=== PATIENT | male | born 1960 | race Caucasian/White ===

== ENCOUNTER 2020-10-23 05:06 | Day surgery (SDC) | payer OTHER ==
[2020-10-19 11:26] LABS: COVID AG,FIA SOURCE NASOPHARYNGEAL
[~2020-10-23] VITALS: Ht 170.2 cm; Wt 68.6 kg
[~2020-10-23 05:06] MED LIST: RINGERS SOLUTION,LACTATED 500 ML IV ONE
[2020-10-23] MEDS ORDERED: POVIDONE-IODINE 10% 15 ML SOLUTION UD TP ONE (05:07)
[2020-10-23] MEDS ORDERED: HYALURONATE SODIUM 12 MG/ML 0.8 ML SYRINGE IO ONE (05:07)
[2020-10-23] MEDS ORDERED: NEOMYCIN/POLYMYXIN B/DEXAMETH 3.5 GM OPHTHALMIC OINTMENT OD ONE (05:07)
[2020-10-23] MEDS ORDERED: BALANCED SALT 15 ML OPHTHALMIC IRRIG.SOLN IO ONE (05:07)
[2020-10-23] MEDS ORDERED: LIDOCAINE/PF 1% 2 ML VIAL IM ONE (05:07)
[2020-10-23] MEDS ORDERED: PrednisoLONE ACETATE 1% 5 ML OPHTHALMIC SUSPENSION OD ONE (05:07)
[2020-10-23] MEDS ORDERED: EPINEPHrine 1:1,000 [1 MG/ML] AMP IM ONE (05:07)
[2020-10-23] MEDS: TETRACAINE HCL/PF 0.5% 4 ML OPHTHALMIC SOLUTION OS SCH ×3 (05:53→06:06)
[2020-10-23] MEDS: KETOROLAC TROMETHAMINE 0.5% 5 ML OPHTHALMIC SOLUTION OS SCH ×3 (05:53→06:06)
[2020-10-23] MEDS: CYCLOPENTOLATE HCL 1% 2 ML OPHTHALMIC SOLUTION OS SCH ×3 (05:53→06:06)
[2020-10-23] MEDS: TROPICAMIDE 1% 2 ML OPHTHALMIC SOLUTION OS SCH ×3 (05:54→06:06)
[2020-10-23] MEDS: MOXIFLOXACIN HCL 0.5% 3 ML OPHTHALMIC SOLUTION OS SCH ×3 (05:54→06:06)
[2020-10-23] MEDS: PHENYLEPHRINE HCL 2.5% 2 ML OPHTHALMIC SOLUTION OS SCH ×3 (05:54→06:06)
[2020-10-23] MEDS ORDERED: FentaNYL CITRATE PF 100 MCG/2 ML VIAL IVP ONE (12:00)
[2020-10-23] MEDS ORDERED: MIDAZOLAM HCL 2 MG/2 ML VIAL IVP ONE (12:00)
== END 2020-10-23 08:20 | disposition home or self-care (01) ==
LOC: SURGERY 05:06
PROVIDERS: ATTEND Ophthalmology
DX: H25.12 Age-related nuclear cataract, left eye (principal); J44.9 Chronic obstructive pulmonary disease, unspecified; F17.210 Nicotine dependence, cigarettes, uncomplicated; Z88.0 Allergy status to penicillin; Z98.890 Other specified postprocedural states
CPT/HCPCS: 66984; 87426; C9803; J0171; J2250; J3010; J3490 ×2; V2632

== ENCOUNTER 2020-12-18 05:12 | Day surgery (SDC) | payer OTHER ==
[2020-12-14 11:53] LABS: COVID AG,FIA SOURCE NASOPHARYNGEAL
[~2020-12-18] VITALS: Ht 170.2 cm; Wt 72.7 kg
[~2020-12-18 05:12] MED LIST changes: +CYCLOPENTOLATE HCL 1% 2 ML OPHTHALMIC SOLUTION ONE; +KETOROLAC TROMETHAMINE 0.5% 5 ML OPHTHALMIC SOLUTION ONE; +MOXIFLOXACIN HCL 0.5% 3 ML OPHTHALMIC SOLUTION ONE; +PHENYLEPHRINE HCL 2.5% 2 ML OPHTHALMIC SOLUTION ONE; +TETRACAINE HCL/PF 0.5% 4 ML OPHTHALMIC SOLUTION ONE; +TROPICAMIDE 1% 2 ML OPHTHALMIC SOLUTION ONE
[2020-12-18] MEDS ORDERED: FentaNYL CITRATE PF 100 MCG/2 ML VIAL IVP ONE (05:13)
[2020-12-18] MEDS ORDERED: MIDAZOLAM HCL 2 MG/2 ML VIAL IVP ONE (05:13)
[2020-12-18] MEDS: TETRACAINE HCL/PF 0.5% 4 ML OPHTHALMIC SOLUTION OD SCH ×3 (05:53→06:04)
[2020-12-18] MEDS: KETOROLAC TROMETHAMINE 0.5% 5 ML OPHTHALMIC SOLUTION OD SCH ×3 (05:53→06:05)
[2020-12-18] MEDS: MOXIFLOXACIN HCL 0.5% 3 ML OPHTHALMIC SOLUTION OD SCH ×3 (05:53→06:05)
[2020-12-18] MEDS: PHENYLEPHRINE HCL 2.5% 2 ML OPHTHALMIC SOLUTION OD SCH ×3 (05:54→06:05)
[2020-12-18] MEDS: TROPICAMIDE 1% 2 ML OPHTHALMIC SOLUTION OD SCH ×3 (05:54→06:05)
[2020-12-18] MEDS: CYCLOPENTOLATE HCL 1% 2 ML OPHTHALMIC SOLUTION OD SCH ×3 (05:54→06:04)
[2020-12-18] MEDS ORDERED: POVIDONE-IODINE 10% 15 ML SOLUTION UD ONE ×2 (06:48→17:19)
[2020-12-18] MEDS ORDERED: EPINEPHrine 1:10,000 [1 MG/10 ML] SYRINGE ONE (17:19)
[2020-12-18] MEDS ORDERED: BALANCED SALT 15 ML OPHTHALMIC IRRIG.SOLN ONE (17:19)
[2020-12-18] MEDS ORDERED: NEOMYCIN/POLYMYXIN B/DEXAMETH 3.5 GM OPHTHALMIC OINTMENT ONE (17:19)
[2020-12-18] MEDS ORDERED: HYALURONATE SODIUM 12 MG/ML 0.8 ML SYRINGE IO ONE (17:19)
[2020-12-18] MEDS ORDERED: PrednisoLONE ACETATE 1% 5 ML OPHTHALMIC SUSPENSION ONE (17:19)
== END 2020-12-18 08:15 | disposition home or self-care (01) ==
LOC: SURGERY 05:12
PROVIDERS: ATTEND Ophthalmology
DX: H25.11 Age-related nuclear cataract, right eye (principal); J44.9 Chronic obstructive pulmonary disease, unspecified; Z88.0 Allergy status to penicillin; F17.210 Nicotine dependence, cigarettes, uncomplicated; Z98.890 Other specified postprocedural states; Z98.42 Cataract extraction status, left eye
CPT/HCPCS: 66984; 87426; 93005; C9803; J0171; J2250; J3010; J3490; J7120; V2632